=== PATIENT | female | born 1965 | race Caucasian/White ===

== ENCOUNTER → 2016-09-01 | Outpatient (REF) | payer BC | LOC: M SFHCPLAZ 11:55 | PROVIDERS: ATTEND Family Medicine | DX: N39.0 Urinary tract infection, site not specified (principal) ==

== ENCOUNTER → 2017-01-01 | Outpatient (REF) | payer BC ==
[2017-01-01 15:54] LABS: ALBUMIN 3.9 GM/DL (3.2-5.2); ALBUMIN/GLOBULIN RATIO 1.39 (1.00-1.93); ALKALINE PHOSPHATASE 30 U/L (45-117); ALT/SGPT 22 U/L (12-78); AMYLASE 84 U/L (25-115); ANION GAP 6 MEQ/L (8-16); AST/SGOT 13 U/L (15-37); BILIRUBIN,TOTAL 0.5 MG/DL (0.2-1.0); BLOOD UREA NITROGEN 7 MG/DL (7-18); CALCIUM LEVEL 8.8 MG/DL (8.5-10.1); CARBON DIOXIDE LEVEL 31 MEQ/L (21-32); CHLORIDE LEVEL 103 MEQ/L (98-107); CREATININE FOR GFR 0.69 MG/DL (0.55-1.02); GLOMERULAR FILTRATION RATE > 60.0 (>51); GLUCOSE, FASTING 136 MG/DL (70-105); POTASSIUM SERUM 3.7 MEQ/L (3.5-5.1); SODIUM LEVEL 140 MEQ/L (136-145); TOTAL PROTEIN 6.7 GM/DL (6.4-8.2)
[2017-01-01 15:58] LABS: BASO % 0.4 % (0.0-1.0); EOS % 0.3 % (0.0-3.0); LARGE UNSTAINED CELL # 0.1 K/mm3 (0.0-0.4); LARGE UNSTAINED CELL % 1.7 % (0.0-4.0); LYMPH % 35.2 % (24.0-44.0); MEAN CORPUSCULAR HEMOGLOBIN 32.2 pg (27.0-33.0); MEAN CORPUSCULAR HGB CONC 33.9 g/dl (32.0-36.5); MEAN CORPUSCULAR VOLUME 95.1 fl (80.0-96.0); MONO # 0.3 K/mm3 (0.0-0.8); MONO % 4.6 % (0.0-5.0); NEUTROPHILS # 3.3 K/mm3 (1.8-7.7); NEUTROPHILS % 57.8 % (36.0-66.0); PLATELET COUNT, AUTOMATED 216 k/mm3 (150-450); RED CELL DISTRIBUTION WIDTH 12.4 % (11.5-14.5); WHITE BLOOD COUNT 5.7 K/mm3 (4.0-10.0)
== END ==
LOC: M SFHCPLAZ 13:48
PROVIDERS: ATTEND Nurse Practitioner Family
DX: R10.11 Right upper quadrant pain (principal)

== ENCOUNTER → 2017-01-04 | Outpatient (REF) | payer BC | LOC: M SFHCPLAZ 13:13 | PROVIDERS: ATTEND Family Medicine | DX: R19.5 Other fecal abnormalities (principal) ==

== ENCOUNTER → 2017-01-05 | Outpatient (CLI) | payer BC ==
--- NOTE | 2017-01-05 08:45 | REP ---
Right upper quadrant sonography: History: Right upper quadrant pain. Comparison study October 29, 2014. Findings: Scanning through the right upper quadrant of the abdomen demonstrates a normal sized thin-walled gallbladder without evidence of stone or polyp. Common bile duct is normal measuring 0.3 cm in greatest diameter. No focal liver lesion is seen. Pancreas is unremarkable. A normal caliber aorta is seen. There is no evidence of ascites. There is an echogenic focus in the upper pole right kidney 7 mm in diameter consistent with an irregular intrarenal calculus. The right kidney measures 11.3 x 6.4 x 4.0 cm. There is no evidence of hydronephrosis. Impression: Intrarenal nephrolithiasis. Otherwise negative right upper quadrant sonography. Signed by Sonny Coughlin MD 01/05/2017 09:37 A
== END ==
LOC: M RAD 06:20
PROVIDERS: ATTEND Nurse Practitioner Family
DX: N20.0 Calculus of kidney (principal)

== ENCOUNTER → 2017-02-19 | Outpatient (REF) | payer BC | LOC: M SMT 16:58 | PROVIDERS: ATTEND Nurse Practitioner Women's Health | DX: N20.0 Calculus of kidney (principal) ==

== ENCOUNTER → 2017-02-27 | Outpatient (CLI) | payer BC ==
--- NOTE | 2017-02-28 05:36 | REP ---
Clinical: Chronic flank pain with history of nephrolithiasis. Comparison: 12/31/2013. Findings: Evaluation of the urinary tract system demonstrates normal appearance to the left kidney/ureter and bladder. The right kidney demonstrates stable 3 mm nonobstructing mid/upper pole calculus. There is a 1 mm calculus overlying the right psoas muscle at the level of the S1 (image 85) and phlebolith versus nonobstructing ureteral calculus cannot be differentiated. Liver, spleen, pancreas, gallbladder, and bilateral adrenal glands are normal for noncontrast evaluation. The enteric system is without obstruction or acute inflammatory process. Colonic diverticula noted without acute diverticulitis. Postsurgical changes at the right lower quadrant suggest prior appendectomy. Pelvis demonstrates normal bladder and evidence to suggest prior hysterectomy. No ascites. No free air. No obvious adenopathy. Abdominal aorta without aneurysm. Surrounding musculoskeletal structures demonstrate age-related changes without focal osseous abnormality. Lung bases are clear. Impression: 1. Nonobstructing right renal calculus. 2. A 1 mm phlebolith versus nonobstructing right ureteral calculus as described above. Correlation with physical examination and urinalysis may be warranted as well as contrast enhanced CT-urogram study. 3. Scattered colonic diverticulosis without acute diverticulitis. 4. No further acute abdominopelvic pathology appreciated. Signed by Johnnie Downey MD 02/28/2017 05:29 A
== END ==
LOC: M RAD 17:21
PROVIDERS: ATTEND Nurse Practitioner Women's Health
DX: N20.0 Calculus of kidney (principal); K57.90 Diverticulosis of intestine, part unspecified, without perforation or abscess without bleeding; R10.9 Unspecified abdominal pain

== ENCOUNTER → 2017-10-10 | Outpatient (CLI) | payer BC | LOC: M RAD 16:41 | DX: M25.78 Osteophyte, vertebrae (principal); M25.712 Osteophyte, left shoulder | CPT/HCPCS: 72052 ==

== ENCOUNTER → 2017-11-22 | Outpatient (CLI) | payer BC | LOC: M WHC 07:12 | DX: Z12.31 Encounter for screening mammogram for malignant neoplasm of breast (principal) | CPT/HCPCS: 77067 ==

== ENCOUNTER → 2017-12-07 | Outpatient (REF) | payer BC ==
[2017-12-07 10:34] LABS: CHOLESTEROL LEVEL 264 MG/DL (<200); CHOLESTEROL RISK RATIO 4.258 (<5); GLUCOSE, FASTING 89 MG/DL (70-100); HDL CHOLESTEROL 62 MG/DL (>40); LDL CHOLESTEROL 189.8 MG/DL (<100); NON-HDL-C 202 MG/DL; TRIGLYCERIDES LEVEL 61 MG/DL (<150)
== END ==
LOC: M SFHCPLAZ 07:47
DX: Z13.1 Encounter for screening for diabetes mellitus (principal); Z13.220 Encounter for screening for lipoid disorders
CPT/HCPCS: 82947

== ENCOUNTER 2017-12-10 15:51 | Outpatient (RCR) | payer BC | END 2017-12-27 | LOC: M PT 15:51 | DX: Z51.89 Encounter for other specified aftercare (principal); M54.2 Cervicalgia | CPT/HCPCS: 97010 ==

== ENCOUNTER 2017-12-31 16:16 | Outpatient (RCR) | payer BC | END 2018-01-26 | LOC: M PT 16:16 | DX: Z51.89 Encounter for other specified aftercare (principal); M54.2 Cervicalgia; M50.30 Other cervical disc degeneration, unspecified cervical region | CPT/HCPCS: 97012 ==

== ENCOUNTER → 2018-01-19 | Outpatient (REF) | payer BC | LOC: M SFHCLERA 10:19 | DX: R30.0 Dysuria (principal) | CPT/HCPCS: 87186 ==

== ENCOUNTER → 2018-09-06 | Outpatient (REF) | payer BC ==
[~2018-09-06] MED LIST: IBUP-1022 PO; VITA200015 PO
[2018-09-06 12:14] LABS: CHOLESTEROL RISK RATIO 4.352 (<5)
== END ==
LOC: M SFHCPLAZ 07:40
PROVIDERS: ATTEND Family Medicine
DX: E78.2 Mixed hyperlipidemia (principal)

== ENCOUNTER → 2018-09-18 | Outpatient (REF) | payer BC | LOC: M SFHCPLAZ 11:42 | PROVIDERS: ATTEND Family Medicine | DX: L85.3 Xerosis cutis (principal) ==

== ENCOUNTER → 2018-09-18 | Outpatient (REF) | payer BC | LOC: M SFHCPLAZ 10:15 | PROVIDERS: ATTEND Family Medicine | DX: N30.01 Acute cystitis with hematuria (principal) ==

== ENCOUNTER → 2018-09-30 | Outpatient (REF) | payer BC ==
[2018-09-30 19:17] LABS: ALBUMIN 4.7 GM/DL (3.2-5.2); ALT/SGPT 34 U/L (12-78); BILIRUBIN,TOTAL 0.5 MG/DL (0.2-1.0); BLOOD UREA NITROGEN 11 MG/DL (7-18); CALCIUM LEVEL 9.5 MG/DL (8.5-10.1); CARBON DIOXIDE LEVEL 29 MEQ/L (21-32); CHLORIDE LEVEL 101 MEQ/L (98-107); CREATININE FOR GFR 0.66 MG/DL (0.55-1.30); GLOMERULAR FILTRATION RATE > 60.0 (>51); GLUCOSE, FASTING 84 MG/DL (70-100); POTASSIUM SERUM 4.1 MEQ/L (3.5-5.1); SODIUM LEVEL 138 MEQ/L (136-145); TOTAL PROTEIN 7.8 GM/DL (6.4-8.2)
== END ==
LOC: M SFHCPLAZ 16:05
PROVIDERS: ATTEND Nurse Practitioner Adult Health
DX: R35.0 Frequency of micturition (principal); E78.2 Mixed hyperlipidemia

== ENCOUNTER → 2018-10-02 | Outpatient (REF) | payer BC | LOC: M SFHCPLAZ 10:57 | PROVIDERS: ATTEND Nurse Practitioner Adult Health | DX: R35.0 Frequency of micturition (principal) ==

== ENCOUNTER → 2018-12-13 | Outpatient (REF) | payer BC | LOC: M SFHCPLAZ 18:59 | PROVIDERS: ATTEND Dermatology | DX: L57.0 Actinic keratosis (principal) ==

== ENCOUNTER → 2019-03-27 | Outpatient (CLI) | payer BC ==
--- NOTE | 2019-03-27 08:05 | REP ---
BILATERAL SCREENING DIGITAL MAMMOGRAM WITH 3D TOMOSYNTHESIS: There are no palpable abnormalities or other breast complaints. The the patient states she had a clinical breast examination the February,. The the patient states she performs self-breast examinations 12 times per year. The Tyrer Cuzick Score is: 8.0% . Comparison is 03/19/2014. The breasts are heterogeneously dense, which could obscure small masses. There is no dominant mass, micro calcific cluster or architectural distortion that would indicate malignancy. There are no additional findings on 3D tomosynthesiss. There is no change from the prior study. Impression: BIRADS/ACR category 1 mammogram. Negative. Recommendation: Routine annual screening mammography. Because of the increased breast density, annual adjunctive breast MRI in addition to screening mammography is recommended. These can be performed at alternating six month intervals. This mammogram was interpreted with the aid of a FDA approved computer-aided detection system. A. Negative mammogram reports should not delay biopsy if a dominant or clinically suspicious mass is present. B. Not all breast cancers are identified by mammography or tomosynthesis. C. Adenosis and dense breasts may obscure an underlying neoplasm. Patient letter M1 dense breasts. Electronically Signed by Kendall Marte MD 03/27/2019 07:55 A
== END ==
LOC: M WHC 06:32
PROVIDERS: ATTEND Family Medicine
DX: Z12.39 Encounter for other screening for malignant neoplasm of breast (principal)

== ENCOUNTER → 2019-08-29 | Outpatient (CLI) | payer BC, OTHER ==
[2019-08-29 08:12] LABS: ALBUMIN 4.2 GM/DL (3.2-5.2); ALT/SGPT 25 U/L (12-78); BILIRUBIN,TOTAL 0.7 MG/DL (0.2-1.0); BLOOD UREA NITROGEN 14 MG/DL (7-18); CALCIUM LEVEL 9.3 MG/DL (8.5-10.1); CARBON DIOXIDE LEVEL 30 MEQ/L (21-32); CHLORIDE LEVEL 103 MEQ/L (98-107); CHOLESTEROL LEVEL 311 MG/DL (<200); CHOLESTEROL RISK RATIO 4.641 (<5); CREATININE FOR GFR 0.75 MG/DL (0.55-1.30); GLOMERULAR FILTRATION RATE > 60.0 (>51); GLUCOSE, FASTING 97 MG/DL (70-100); HDL CHOLESTEROL 67 MG/DL (>40); LDL CHOLESTEROL 222 MG/DL (<100); NON-HDL-C 244 MG/DL; POTASSIUM SERUM 4.1 MEQ/L (3.5-5.1); SODIUM LEVEL 139 MEQ/L (136-145); TRIGLYCERIDES LEVEL 109 MG/DL (<150)
[2019-08-29 10:03] LABS: VITAMIN B12 LEVEL 250 PG/ML (247-911)
== END ==
LOC: M LAB 07:00
PROVIDERS: ATTEND Family Medicine
DX: E78.2 Mixed hyperlipidemia (principal); R25.1 Tremor, unspecified; R41.3 Other amnesia

== ENCOUNTER → 2020-02-29 | Outpatient (REF) | LOC: M EMP 11:30 | PROVIDERS: ATTEND Family Medicine | DX: Z20.828 Contact with and (suspected) exposure to other viral communicable diseases (principal) ==

== ENCOUNTER 2020-03-02 10:40 | Emergency (ER) | payer BC, OTHER | END 2020-03-02 11:01 | disposition home or self-care (01) | LOC: M ED 10:40 | DX: J06.9 Acute upper respiratory infection, unspecified (principal); Z91.09 Other allergy status, other than to drugs and biological substances; Z88.1 Allergy status to other antibiotic agents; Z79.51 Long term (current) use of inhaled steroids; Z79.899 Other long term (current) drug therapy ==

== ENCOUNTER → 2020-12-09 | Outpatient (CLI) | payer BC, OTHER ==
--- NOTE | 2020-12-09 17:18 | REP ---
INDICATION: OTHER FATIGUE, COUGH / LABS 1ST. COMPARISON: None. FINDINGS: The superior mediastinal structures are midline. The cardiac silhouette is unremarkable in size, shape, and position. The diaphragmatic surfaces of the lungs are regular, and the costophrenic angles are clear. The pulmonary chowdhury are clear. The imaged osseous structures are intact. IMPRESSION: There is no acute cardiopulmonary disease. <Electronically signed by Jameson Finney > 12/09/20 [id number]
[2020-12-09 17:29] LABS: BASO % 0.7 % (0.0-1.0); EOS # 0.1 10^3/uL (0.0-0.5); EOS % 1.4 % (0.0-3.0); HEMATOCRIT 44.4 % (36.0-47.0); HEMOGLOBIN 14.3 g/dl (12.0-15.5); LYMPH # 2.1 10^3/uL (1.5-5.0); LYMPH % 36.6 % (24.0-44.0); MEAN CORPUSCULAR HEMOGLOBIN 29.9 pg (27.0-33.0); MEAN CORPUSCULAR HGB CONC 32.2 g/dl (32.0-36.5); MEAN CORPUSCULAR VOLUME 92.9 fl (80.0-96.0); MONO # 0.5 10^3/uL (0.0-0.8); MONO % 8.2 % (2.0-8.0); NEUTROPHILS % 52.7 % (36.0-66.0); PLATELET COUNT, AUTOMATED 222 10^3/uL (150-450); RED BLOOD COUNT 4.78 10^6/uL (4.00-5.40); WHITE BLOOD COUNT 5.6 10^3/uL (4.0-10.0)
[2020-12-09 17:43] LABS: ALBUMIN 4.4 GM/DL (3.2-5.2); ALT/SGPT 26 U/L (12-78); BILIRUBIN,TOTAL 0.5 MG/DL (0.2-1.0); BLOOD UREA NITROGEN 15 MG/DL (7-18); CALCIUM LEVEL 9.5 MG/DL (8.5-10.1); CARBON DIOXIDE LEVEL 31 MEQ/L (21-32); CHLORIDE LEVEL 106 MEQ/L (98-107); CREATININE FOR GFR 0.75 MG/DL (0.55-1.30); GLOMERULAR FILTRATION RATE > 60.0 (>51); GLUCOSE, FASTING 88 MG/DL (70-100); POTASSIUM SERUM 4.5 MEQ/L (3.5-5.1); SODIUM LEVEL 141 MEQ/L (136-145); TOTAL PROTEIN 7.6 GM/DL (6.4-8.2)
== END ==
LOC: M LAB 16:57
PROVIDERS: ATTEND Physician Assistant
DX: R53.83 Other fatigue (principal); R05 Cough; R06.02 Shortness of breath
CPT/HCPCS: 36415; 71046; 80053; 85025; U0003

== ENCOUNTER → 2021-03-01 | Outpatient (CLI) | payer BC, OTHER | LOC: M LAB 12:49 | PROVIDERS: ATTEND Internal Medicine Gastroenterology | DX: Z13.9 Encounter for screening, unspecified (principal) ==

== ENCOUNTER → 2021-03-25 | Outpatient (CLI) | payer BC, OTHER ==
[2021-03-25 13:04] LABS: BASO % 0.8 % (0.0-1.0); EOS % 0.8 % (0.0-3.0); HEMATOCRIT 42.7 % (36.0-47.0); HEMOGLOBIN 14.1 g/dl (12.0-15.5); LYMPH # 1.9 10^3/uL (1.5-5.0); LYMPH % 37.2 % (24.0-44.0); MEAN CORPUSCULAR HEMOGLOBIN 30.7 pg (27.0-33.0); MEAN CORPUSCULAR VOLUME 92.8 fl (80.0-96.0); MONO # 0.4 10^3/uL (0.0-0.8); NEUTROPHILS # 2.7 10^3/uL (1.5-8.5); PLATELET COUNT, AUTOMATED 244 10^3/uL (150-450)
[2021-03-25 13:32] LABS: ALT/SGPT 30 U/L (12-78); BILIRUBIN,TOTAL 0.4 MG/DL (0.2-1.0); BLOOD UREA NITROGEN 12 MG/DL (7-18); CALCIUM LEVEL 9.2 MG/DL (8.5-10.1); CARBON DIOXIDE LEVEL 30 MEQ/L (21-32); CHLORIDE LEVEL 105 MEQ/L (98-107); CREATININE FOR GFR 0.71 MG/DL (0.55-1.30); GLOMERULAR FILTRATION RATE > 60.0 (>51); GLUCOSE, FASTING 89 MG/DL (70-100); LIPASE 156 U/L (73-393); POTASSIUM SERUM 4.2 MEQ/L (3.5-5.1); SODIUM LEVEL 139 MEQ/L (136-145)
== END ==
LOC: M PLALAB 11:31
PROVIDERS: ATTEND Family Medicine
DX: R10.11 Right upper quadrant pain (principal)

== ENCOUNTER → 2021-04-05 | Outpatient (CLI) | payer BC, OTHER ==
--- NOTE | 2021-04-05 10:05 | REP ---
INDICATION: RUQ PAIN. COMPARISON: Comparison CT study of the abdomen February 27, 2017. TECHNIQUE: Right upper quadrant abdominal sonography. FINDINGS: Scanning through the right upper quadrant the abdomen demonstrates a normal sized and walled gallbladder without evidence of stone or polyp. Common bile duct is normal measuring 0.2 cm in greatest diameter. No focal liver lesion is seen. Liver is not enlarged. No pancreatic abnormality is observed. There is no evidence of ascites. The right kidney measures 10.4 x 5.7 x 3.3 cm. There is a 5 mm echogenic focus in the upper pole of the right kidney which could be an intrarenal calculus. IMPRESSION: Probable intrarenal calculus upper pole right kidney. Otherwise negative right upper quadrant sonography. <Electronically signed by Rusty Coughlin > 04/05/21 100
== END ==
LOC: M WHC 09:17
PROVIDERS: ATTEND Family Medicine
DX: R10.11 Right upper quadrant pain (principal)

== ENCOUNTER → 2021-06-01 | Outpatient (CLI) | payer BC, OTHER ==
--- NOTE | 2021-06-01 17:05 | REP ---
INDICATION: NICOTINE DEPEND. COMPARISON: 11/05/[address] angio chest TECHNIQUE: Axial noncontrast images from the thoracic inlet to the upper abdomen using low-dose lung screening technique (LDCT). As per the protocol only lung window images were sent to the read station for interpretation. FINDINGS: No abnormal nodules, masses, or opacities have developed. Grossly, the mediastinum and pulmonary taty are unchanged. Grossly, the imaged upper abdomen and imaged osseous structures are unchanged. IMPRESSION: Lung rads category 1 low-dose screening CT examination of the lungs. No abnormal nodules. Follow-up as per the revised Fleischner society criteria. <Electronically signed by Jameson Finney > 06/01/21 0735
== END ==
LOC: M RAD 16:37
PROVIDERS: ATTEND Family Medicine
DX: Z12.2 Encounter for screening for malignant neoplasm of respiratory organs (principal); F17.211 Nicotine dependence, cigarettes, in remission

== ENCOUNTER → 2021-06-17 | Outpatient (CLI) | payer BC, OTHER ==
--- NOTE | 2021-06-17 17:04 | REPMRS ---
Patient History The patient states she has not had a clinical breast exam in over a year. Patient had tested negative for BRCA2. Family history of colorectal cancer at age 52 in father, colorectal cancer at age 50 or over in maternal uncle. Took estrogen for 1 month. Patient states no breast complaints today. Patient has signed MRS History Sheet. Digital Woman Screen Mammo: June 17, 2021 - Exam #: [id number] Bilateral CC and MLO view(s) were taken. Technologist: Ariella Dai, [employer] Prior study comparison: March 27, 2019, bilateral digital woman screen mammo performed at [facility]. November 22, 2017, digital woman screen mammo performed at [facility]. FINDINGS: The breast tissue is heterogeneously dense. This may lower the sensitivity of mammography. Screening. Digital screening (2D) mammography was performed bilaterally in the CC and MLO projections. Additionally, breast tomosynthesis (3D mammography) was performed bilaterally in the CC and MLO projections. Todays exam was compared to the prior exam/exams. By history, the patient has no complaints of a palpable breast abnormality or other significant breast complaints. The Volpara volumetric breast density category is C, the breasts are heterogenously dense which may obscure small masses. The breasts are unchanged in size and shape. There are no santos-soft tissue densities or spiculated masses. There is no internal architectural distortion. There are no suspicious santos-calcific clusters. Skin thickening or nipple retraction is not present. IMPRESSION: BI-RADS Category 2- Benign Findings. There is no evidence of malignant alteration of the breasts. Followup examination recommended in one year. The lifetime Tyrer-Cuzick score is 7.4% This mammogram [facility] FDA approved computer aided detection system for mammography. Due to the density of the breasts or Tyrer Cuzick score of 20% or greater, MRI/whole breast screening ultrasound is warranted. Negative x-ray reports should not delay surgical consultation if a dominant or clinically suspicious mass is present. Not all breast cancers can be identified by mammography. Therefore, we recommend that you continue to perform regular breast self-examination and physical examination and then promptly contact your physician of any concerns or changes. Adenosis and dense breasts may obscure an underlying neoplasm. No significant changes when compared with prior studies. Assessment: BI-RADS/ACR category 2 mammogram. Benign Findings. Recommendation Routine screening mammogram of both breasts in 1 year. Electronically Signed By: Kunal Sánchez MD 06/17/21 [id number]
== END ==
LOC: M WHC 15:49
PROVIDERS: ATTEND Family Medicine
DX: Z12.31 Encounter for screening mammogram for malignant neoplasm of breast (principal)

== ENCOUNTER 2022-02-06 10:04 | Emergency (ER) | payer BC, OTHER ==
[~2022-02-06] VITALS: Ht 157.5 cm; Wt 69.5 kg
[2022-02-06] MEDS ORDERED: B-12100010 PO (11:19)
[2022-02-06] MEDS ORDERED: VANCOMYCIN ORAL SOL 250MG/5ML ORAL SYRINGE PO STA (16:07)
[2022-02-06] MEDS ORDERED: KETOROLAC 30 MG/ML 1ML VIAL IV ONE (16:10)
[2022-02-06] MEDS ORDERED: NS 1,000 ML IV ONE (16:10)
[2022-02-06 17:07] LABS: BASO % 0.3 % (0.0-1.0); EOS # 0.1 10^3/uL (0.0-0.5); EOS % 0.8 % (0.0-3.0); HEMATOCRIT 40.6 % (36.0-47.0); HEMOGLOBIN 13.5 g/dl (12.0-15.5); LYMPH # 1.6 10^3/uL (1.5-5.0); LYMPH % 25.6 % (24.0-44.0); MEAN CORPUSCULAR HEMOGLOBIN 30.5 pg (27.0-33.0); MEAN CORPUSCULAR HGB CONC 33.3 g/dl (32.0-36.5); MEAN CORPUSCULAR VOLUME 91.9 fl (80.0-96.0); MONO # 0.7 10^3/uL (0.0-0.8); MONO % 11.7 % (2.0-8.0); NEUTROPHILS # 3.8 10^3/uL (1.5-8.5); NEUTROPHILS % 61.3 % (36.0-66.0); PLATELET COUNT, AUTOMATED 262 10^3/uL (150-450); RED BLOOD COUNT 4.42 10^6/uL (4.00-5.40); WHITE BLOOD COUNT 6.2 10^3/uL (4.0-10.0)
[2022-02-06] MEDS ORDERED: VANC125C3 PO (17:41)
[2022-02-06 18:07] VITALS: BP 114/57
[2022-02-08] MEDS ORDERED: VANC125C10 PO (10:33)
[2022-02-08] MEDS ORDERED: VITA100093 PO (17:42)
[2022-02-08] MEDS ORDERED: DIFI200T PO (17:54)
== END 2022-02-06 18:10 | disposition home or self-care (01) ==
LOC: M ED 10:04
DX: B96.89 Other specified bacterial agents as the cause of diseases classified elsewhere (principal); R19.7 Diarrhea, unspecified; E78.5 Hyperlipidemia, unspecified; Z88.1 Allergy status to other antibiotic agents
CPT/HCPCS: 80047; 85025; 87507; 96361; 96374; 99284; J1885

== ENCOUNTER → 2022-08-02 | Outpatient (CLI) | payer BC, OTHER ==
[~2022-08-02] MED LIST changes: +B-12100010 PO; +DIFI200T PO; +VANC125C10 PO; +VANC125C3 PO; +VITA100093 PO
[2022-08-02 07:17] LABS: ALBUMIN 3.9 G/DL (3.2-5.2); ALKALINE PHOSPHATASE 40 U/L (46-116); ALT/SGPT 23 U/L (7.0-40); AST/SGOT 18 U/L (<34); BILIRUBIN,TOTAL 0.6 MG/DL (0.3-1.2); BLOOD UREA NITROGEN 20 MG/DL (9-23); CALCIUM LEVEL 9.2 MG/DL (8.5-10.1); CARBON DIOXIDE LEVEL 29 MMOL/L (20-31); CHLORIDE LEVEL 103 MMOL/L (98-107); CHOLESTEROL LEVEL 279 MG/DL (<200); CHOLESTEROL RISK RATIO 4.58 (<5); CREATININE FOR GFR 0.66 MG/DL (0.55-1.30); GLOMERULAR FILTRATION RATE > 60.0 (>51); GLUCOSE, FASTING 91 MG/DL (60-100); HDL CHOLESTEROL 60.8 MG/DL (>40); LDL CHOLESTEROL 193.8 MG/DL (<100); NON-HDL-C 218 MG/DL; POTASSIUM SERUM 4.2 MMOL/L (3.5-5.1); SODIUM LEVEL 138 MMOL/L (136-145); TOTAL PROTEIN 6.7 G/DL (5.7-8.2); TRIGLYCERIDES LEVEL 122 MG/DL (<150)
[2022-08-02 07:18] LABS: THYROID STIMULATING HORMONE 1.722 uIU/ML (0.55-4.78); TOTAL 25(OH) VITAMIN D 40.8 NG/ML (20.0-100.0)
== END ==
LOC: M LAB 06:16
PROVIDERS: ATTEND Nurse Practitioner Adult Health
DX: E78.2 Mixed hyperlipidemia (principal); R25.1 Tremor, unspecified; R41.3 Other amnesia; E55.9 Vitamin D deficiency, unspecified

== ENCOUNTER → 2022-09-18 | Outpatient (CLI) | payer BC, OTHER | LOC: M WHC 08:08 | PROVIDERS: ATTEND Nurse Practitioner Adult Health | DX: Z12.31 Encounter for screening mammogram for malignant neoplasm of breast (principal) ==

== ENCOUNTER → 2022-10-27 | Outpatient (CLI) | payer BC, OTHER ==
[2022-10-27 17:59] LABS: BASO % 0.6 % (0.0-1.0); EOS # 0.1 10^3/uL (0.0-0.5); EOS % 0.8 % (0.0-3.0); HEMATOCRIT 45.1 % (36.0-47.0); HEMOGLOBIN 14.4 g/dl (12.0-15.5); LYMPH # 2.4 10^3/uL (1.5-5.0); LYMPH % 33.7 % (24.0-44.0); MEAN CORPUSCULAR HEMOGLOBIN 29.1 pg (27.0-33.0); MEAN CORPUSCULAR HGB CONC 31.9 g/dl (32.0-36.5); MEAN CORPUSCULAR VOLUME 91.1 fl (80.0-96.0); MONO # 0.5 10^3/uL (0.0-0.8); MONO % 6.4 % (2.0-8.0); NEUTROPHILS # 4.2 10^3/uL (1.5-8.5); NEUTROPHILS % 58.2 % (36.0-66.0); PLATELET COUNT, AUTOMATED 233 10^3/uL (150-450); RED BLOOD COUNT 4.95 10^6/uL (4.00-5.40); WHITE BLOOD COUNT 7.2 10^3/uL (4.0-10.0)
[2022-10-27 18:15] LABS: LIPASE 40 U/L (12-53)
[2022-10-27 18:16] LABS: C REACTIVE PROTEIN QUANTITATIV < 0.40 MG/DL (<1.0)
[2022-10-27 18:22] LABS: ALBUMIN 4.5 G/DL (3.2-5.2); ALKALINE PHOSPHATASE 40 U/L (46-116); ALT/SGPT 28 U/L (7.0-40); AST/SGOT 17 U/L (<34); BILIRUBIN,TOTAL 0.7 MG/DL (0.3-1.2); BLOOD UREA NITROGEN 15 MG/DL (9-23); CALCIUM LEVEL 9.6 MG/DL (8.5-10.1); CARBON DIOXIDE LEVEL 29 MMOL/L (20-31); CHLORIDE LEVEL 102 MMOL/L (98-107); CREATININE FOR GFR 0.64 MG/DL (0.55-1.30); GLOMERULAR FILTRATION RATE > 60.0 (>51); GLUCOSE, FASTING 96 MG/DL (60-100); POTASSIUM SERUM 4.5 MMOL/L (3.5-5.1); SODIUM LEVEL 134 MMOL/L (136-145); TOTAL PROTEIN 7.2 G/DL (5.7-8.2)
[2022-10-27 18:26] LABS: ERYTHROCYTE SEDIMENTATION RATE 18 mm/hr (0-30)
== END ==
LOC: M PLALAB 16:18
PROVIDERS: ATTEND Physician Assistant
DX: R10.9 Unspecified abdominal pain (principal)

== ENCOUNTER → 2022-11-02 | Outpatient (CLI) | payer BC, OTHER | LOC: M RAD 08:25 | PROVIDERS: ATTEND Physician Assistant | DX: R10.9 Unspecified abdominal pain (principal) ==

== ENCOUNTER 2022-11-14 12:37 | Emergency (ER) | payer BC, OTHER ==
[~2022-11-14] VITALS: Ht 157.5 cm; Wt 71.9 kg
[2022-11-14] MEDS ORDERED: SERT50TA29 (13:01)
[2022-11-14] MEDS ORDERED: DONE10TA90 (13:01)
[2022-11-14] MEDS ORDERED: ISOVUE-370 76% 100ML VIAL As Ordered ONE (14:10)
[2022-11-14] MEDS ORDERED: methylPREDNISolone 125MG 2ML VIAL IV ONE (16:20)
[2022-11-14] MEDS ORDERED: KETOROLAC 30 MG/ML 1ML VIAL IV ONE (16:20)
[2022-11-14] MEDS ORDERED: methocarbamoL 500 MG TAB PO ONE (16:20)
[2022-11-14] MEDS ORDERED: METH-1164 PO (18:53)
[2022-11-14] MEDS ORDERED: MEDR4PAK PO (18:53)
[2022-11-14] MEDS ORDERED: IBUP-1022 PO (18:53)
[2022-11-14 20:19] VITALS: BP 122/78
[2022-11-14 20:20] VITALS: O2SAT 99
== END 2022-11-14 20:21 | disposition home or self-care (01) ==
LOC: M ED 12:37
DX: M51.26 Other intervertebral disc displacement, lumbar region (principal); E78.5 Hyperlipidemia, unspecified; Z87.442 Personal history of urinary calculi; Z88.8 Allergy status to other drugs, medicaments and biological substances; Z79.899 Other long term (current) drug therapy
CPT/HCPCS: 72148; 96374; 96375; 99284; J1885; J2930; Q9967

== ENCOUNTER → 2023-01-15 | Outpatient (CLI) | payer BC, OTHER ==
[~2023-01-15] MED LIST changes: +DONE10TA90; +MEDR4PAK PO; +METH-1164 PO; +SERT50TA29
[2023-01-15 10:19] LABS: ALBUMIN 4.1 G/DL (3.2-5.2); ALKALINE PHOSPHATASE 40 U/L (46-116); ALT/SGPT 19 U/L (7.0-40); AST/SGOT 9 U/L (<34); BILIRUBIN,TOTAL 0.5 MG/DL (0.3-1.2); BLOOD UREA NITROGEN 11 MG/DL (9-23); CARBON DIOXIDE LEVEL 30 MMOL/L (20-31); CHLORIDE LEVEL 105 MMOL/L (98-107); CHOLESTEROL LEVEL 298 MG/DL (<200); CREATININE FOR GFR 0.65 MG/DL (0.55-1.30); GLOMERULAR FILTRATION RATE > 60.0 (>51); GLUCOSE, FASTING 91 MG/DL (60-100); HDL CHOLESTEROL 63.3 MG/DL (>40); LDL CHOLESTEROL 205.7 MG/DL (<100); NON-HDL-C 234.7 MG/DL; POTASSIUM SERUM 4.2 MMOL/L (3.5-5.1); SODIUM LEVEL 140 MMOL/L (136-145); TOTAL PROTEIN 6.6 G/DL (5.7-8.2); TRIGLYCERIDES LEVEL 145 MG/DL (<150)
[2023-01-15 10:21] LABS: THYROID STIMULATING HORMONE 1.224 uIU/ML (0.55-4.78); TOTAL 25(OH) VITAMIN D 34.5 NG/ML (20.0-100.0)
== END ==
LOC: M LAB 07:08
PROVIDERS: ATTEND Nurse Practitioner Adult Health
DX: E78.2 Mixed hyperlipidemia (principal); R25.1 Tremor, unspecified; R41.3 Other amnesia; E55.9 Vitamin D deficiency, unspecified

== ENCOUNTER → 2023-08-06 | Outpatient (REF) | payer BC, OTHER | LOC: M LAB REF 12:19 | PROVIDERS: ATTEND Internal Medicine | DX: K29.70 Gastritis, unspecified, without bleeding (principal) ==

== ENCOUNTER → 2024-03-04 | Outpatient (CLI) | payer BC, OTHER ==
[~2024-03-04] MED LIST changes: -VANC125C10 PO; +VANC125C12 PO
== END ==
LOC: M WHC 15:11
PROVIDERS: ATTEND Internal Medicine
DX: Z12.31 Encounter for screening mammogram for malignant neoplasm of breast (principal)

== ENCOUNTER → 2024-03-11 | Outpatient (CLI) | payer BC, OTHER | LOC: M RAD 16:20 | PROVIDERS: ATTEND Internal Medicine | DX: Z12.2 Encounter for screening for malignant neoplasm of respiratory organs (principal); F17.211 Nicotine dependence, cigarettes, in remission ==

== ENCOUNTER → 2024-06-17 | Outpatient (CLI) | payer BC, OTHER | LOC: M WUC 11:26 | PROVIDERS: ATTEND Nurse Practitioner Adult Health | DX: R04.2 Hemoptysis (principal) ==

== ENCOUNTER → 2024-06-25 | Outpatient (CLI) | payer BC, OTHER ==
[~2024-06-25] MED LIST changes: +ISOVUE-370 76% 100ML VIAL As Ordered ONE
== END ==
LOC: M RAD 07:29
PROVIDERS: ATTEND Nurse Practitioner Adult Health
DX: R04.2 Hemoptysis (principal)
CPT/HCPCS: 71260; Q9967

== ENCOUNTER 2025-03-03 13:07 | Emergency (ER) | payer OTHER ==
[~2025-03-03] VITALS: Ht 157.5 cm; Wt 73.3 kg
[~2025-03-03 13:07] MED LIST changes: -ISOVUE-370 76% 100ML VIAL As Ordered ONE; +VANC125C13 PO; -VANC125C3 PO
[2025-03-03] MEDS ORDERED: REPA140I2 (13:13)
[2025-03-03] MEDS ORDERED: EZET10TA21 (13:13)
[2025-03-03] MEDS ORDERED: METH-1164 PO (13:51)
[2025-03-03] MEDS ORDERED: LIDO1ADH93 TD (13:51)
[2025-03-03] MEDS: LIDOCAINE 5% PATCH TD ONE (14:00)
[2025-03-03] MEDS: KETOROLAC 60 MG/2 ML VIAL IM ONE (14:00)
[2025-03-03 14:24] VITALS: BP 118/76; TEMP 98.7; O2SAT 97
== END 2025-03-03 14:27 | disposition home or self-care (01) ==
LOC: M ED 13:07
DX: S39.012A Strain of muscle, fascia and tendon of lower back, initial encounter (principal); X58.XXXA Exposure to other specified factors, initial encounter; Y92.9 Unspecified place or not applicable; Y93.9 Activity, unspecified; Y99.9 Unspecified external cause status; E78.5 Hyperlipidemia, unspecified; Z87.442 Personal history of urinary calculi
CPT/HCPCS: 96372; 99283; J1885